=== PATIENT | female | born 1995 | race African-American/Black ===

== ENCOUNTER 2022-04-18 10:28 | Day surgery (SDC) | payer OTHER ==
[~2022-04-18] VITALS: Ht 167.6 cm; Wt 70.7 kg
[~2022-04-18 10:28] MED LIST: ceFAZolin SOD 2 GM in IV 1 EA IV ONE
[2022-04-18] MEDS ORDERED: EPINEPHrine 1MG/ML INJ 30ML MD-VIAL IR ONE (10:29)
[2022-04-18] MEDS ORDERED: LR 1,000 ML IV SCH ×2 (10:35→16:45)
[2022-04-18] MEDS ORDERED: EPINEPHrine INJ 1 MG/ML 1ML AMP PN ONE (13:05)
[2022-04-18] MEDS ORDERED: ROPIvacaine 0.5% 30ML INJECTION (J2795 PER 1MG) PN ONE (13:05)
[2022-04-18] MEDS ORDERED: LIDOCAINE 1% SDV 5ML VIAL PN ONE (13:05)
[2022-04-18] MEDS ORDERED: fentaNYL 100 MCG/2 ML INJECTION IV PRN ×2 (13:05→16:45)
[2022-04-18] MEDS: MIDAZOLAM INJ 2MG/2ML VIAL (J2250 PER 1MG) IV PRN ×2 (13:16→13:19)
[2022-04-18] MEDS ORDERED: fentaNYL 100 MCG/2 ML INJECTION As Ordered ONE (13:34)
[2022-04-18] MEDS ORDERED: LIDOCAINE 2% 100MG/5ML SDV (FOR ANES.) As Ordered ONE (13:34)
[2022-04-18] MEDS ORDERED: KETOROLAC 60MG 2ML VIAL As Ordered ONE (13:34)
[2022-04-18] MEDS ORDERED: METOCLOPRAMIDE INJ 10MG/2ML VIAL (J2765 PER 1) As Ordered ONE (13:34)
[2022-04-18] MEDS ORDERED: propofoL 200 MG/20 ML VIAL As Ordered ONE (13:34)
[2022-04-18] MEDS ORDERED: SUGAMMADEX SODIUM 500 MG/5 ML VIAL (BRIDION) As Ordered ONE (13:34)
[2022-04-18] MEDS ORDERED: ONDANSETRON 4MG 2ML VIAL As Ordered ONE (13:34)
[2022-04-18] MEDS ORDERED: dexameTHASONE 4 MG/ML 1ML VIAL (J1100 PER 1MG) As Ordered ONE (13:34)
[2022-04-18] MEDS ORDERED: ROCURONIUM BROMIDE 50 MG/5 ML VIAL As Ordered ONE (13:34)
[2022-04-18] MEDS ORDERED: EPINEPHrine 1MG/ML INJ 30ML MD-VIAL As Ordered ONE (13:42)
[2022-04-18] MEDS ORDERED: TRANEXAMIC ACID 100 MG/ML 10ML VIAL As Ordered ONE (13:42)
[2022-04-18] MEDS ORDERED: oxyCODONE 5MG TAB PO PRN (16:45)
[2022-04-18] MEDS ORDERED: MORPHINE 2 MG/ML 1ML VIAL IV PRN (16:45)
[2022-04-18] MEDS ORDERED: ONDANSETRON 4MG 2ML VIAL IV PRN (16:45)
[2022-04-18] MEDS ORDERED: MEPERIDINE INJ 25 MG/ML VIAL (J2175) IV PRN (16:45)
[2022-04-18 17:45] VITALS: BP 122/70
== END 2022-04-18 18:15 | disposition home or self-care (01) ==
LOC: M SDC 10:28
PROVIDERS: ATTEND Orthopaedic Surgery
DX: M75.41 Impingement syndrome of right shoulder (principal); M25.511 Pain in right shoulder; Z87.891 Personal history of nicotine dependence
CPT/HCPCS: 29806; 29826; 64445; 81025; C1713; J0171; J0690; J1100; J1885; J2250; J2405; J2765; J3010